=== PATIENT | female | born 2005 | race Two or more races ===

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

== ENCOUNTER 2023-04-24 19:53 | Emergency (ER) | payer BC, MEDICAID ==
[~2023-04-24] VITALS: Ht 165.1 cm; Wt 100.0 kg
[2023-04-24 20:05] VITALS: BP 119/46
[2023-04-24] MEDS ORDERED: ketorolac tromethamine 15mg/ml inj. IM STA (20:55)
[2023-04-24] MEDS ORDERED: HYDROcodone/acetaminophen 5mg/325mg tablet PO ONE (22:35)
[2023-04-25] MEDS ORDERED: CYCL-1 PO
== END 2023-04-25 00:10 | disposition home or self-care (01) ==
LOC: ER 19:56
DX: S39.012A Strain of muscle, fascia and tendon of lower back, initial encounter (principal); F31.9 Bipolar disorder, unspecified; Z88.8 Allergy status to other drugs, medicaments and biological substances; Z88.1 Allergy status to other antibiotic agents; Z79.899 Other long term (current) drug therapy; X58.XXXA Exposure to other specified factors, initial encounter; Y93.89 Activity, other specified; Y92.89 Other specified places as the place of occurrence of the external cause; Y99.8 Other external cause status
CPT/HCPCS: 72100; 96372; 99283; J1885

== ENCOUNTER 2023-11-07 21:35 | Emergency (ER) | payer BC, MEDICAID ==
[~2023-11-07] VITALS: Ht 165.1 cm; Wt 87.8 kg
[2023-11-07] MEDS ORDERED: ketorolac trometh. 30mg/ml inj. IM ONE (22:05)
[2023-11-07] MEDS ORDERED: orphenadrine citrate 60mg/2ml inj. IM ONE (22:05)
[2023-11-07] MEDS ORDERED: IBUP-1984 PO (22:26)
[2023-11-07] MEDS ORDERED: CYCL-1 PO (22:26)
[2023-11-08 00:06] VITALS: BP 113/76; PULSE 80; RESP 16; TEMP 98; O2SAT 99
== END 2023-11-08 00:09 | disposition home or self-care (01) ==
LOC: ER 21:36
DX: M54.42 Lumbago with sciatica, left side (principal); M25.511 Pain in right shoulder; F31.9 Bipolar disorder, unspecified; Z88.1 Allergy status to other antibiotic agents; Z88.8 Allergy status to other drugs, medicaments and biological substances; Z79.899 Other long term (current) drug therapy
CPT/HCPCS: 96372; 99284; J1885; J2360